=== PATIENT | male | born 1960 | race Caucasian/White ===

== ENCOUNTER 2016-10-18 09:30 | Emergency (ER) | payer MEDICAID ==
[2016-10-18] MEDS ORDERED: ADENOSINE 6 MG/2 ML VIAL ONE ×2 (09:44→09:50)
[2016-10-18] MEDS ORDERED: ASPIRIN 81 MG CHEW TAB ONE (09:55)
== END 2016-10-18 13:51 | disposition home or self-care (01) ==
LOC: ER 09:30
CPT/HCPCS: 36415; 71010; 80053; 82550; 83735; 84439; 84443; 84484; 85025; 85610; 85730; 93005; 96374